=== PATIENT | female | born 1935 | race Hispanic/Latino ===

== ENCOUNTER 2018-11-26 16:57 | Inpatient (IN) | payer MEDICARE ==
[~2018-11-26] VITALS: Ht 142.2 cm; Wt 49.5 kg
[~2018-11-26 16:57] MED LIST: AMLO5TAB9 PO; CARV12.511 PO; LISI40TA4 PO; MEMA10TA20 PO
[2018-11-26] MEDS ORDERED: SODIUM CHLORIDE 0.9% 1000ML 1,000 ML IV ONE (18:24)
[2018-11-26 18:30] LABS: BASOPHILS % (AUTO) 0.4 % (0.0-5.0); EOSINOPHILS % (AUTO) 0.9 % (0.0-8.0); HEMATOCRIT 36.4 % (36-48); LYMPHOCYTES % (AUTO) 4.6 % (21.0-51.0); MEAN CORPUSCULAR HEMOGLOBIN 30.5 pg (27.0-33.0); MEAN CORPUSCULAR HGB CONC 31.2 g/dL (32.0-36.0); MEAN CORPUSCULAR VOLUME 97.7 fL (79-99); MONOCYTES % (AUTO) 2.3 % (3.0-13.0); NEUTROPHILS % (AUTO) 91.8 % (40.0-77.0); PLATELET COUNT (AUTO) 207 K/uL (130-400); RED BLOOD CELL COUNT(AUTO) 3.73 MIL/uL (4.00-5.50); RED CELL DISTRIBUTION WIDTH 15.2 % (11.0-15.5); WHITE BLOOD COUNT (AUTO) 26.2 K/uL (4.8-10.8)
[2018-11-26 18:43] LABS: INR 1.02 (0.85-1.15); PARTIAL THROMBOPLASTIN TIME 19.9 SEC (26.3-35.5); PROTHROMBIN TIME 10.7 SEC (9.6-11.6)
[2018-11-26 18:49] LABS: ALBUMIN 2.6 g/dL (3.5-5.0); BILIRUBIN,TOTAL 0.2 mg/dL (0.2-1.0); CREATININE 3.4 mg/dL (0.5-1.5); POTASSIUM 4.8 mmol/L (3.5-5.1); TOTAL PROTEIN, SERUM 7.9 g/dL (6.0-8.3)
[2018-11-26] MEDS ORDERED: ZOSYN 3.375GM+NS 50ML 50 ML IV ONE (20:14)
[2018-11-26] MEDS ORDERED: VANCOMYCIN 1GM+NS 250ML 250 ML IV ONE ×2 (20:14→21:00)
[2018-11-26] MEDS ORDERED: ACETAMINOPHEN 650 MG SUPPOSITORY RC ONE (20:16)
[2018-11-26] MEDS ORDERED: SODIUM CHLORIDE 0.9% 1000ML 1,000 ML IV SCH (20:56)
[2018-11-26 20:57] LABS: APPEARANCE,URINE CLOUDY (CLEAR); BILIRUBIN,URINE NEGATIVE (NEGATIVE); COLOR,URINE YELLOW (YELLOW); GLUCOSE, URINE (UA) NEGATIVE (NEGATIVE); KETONES,URINE NEGATIVE (NEGATIVE); LEUKOCYTE ESTERASE ,URINE MODERATE (NEGATIVE); NITRATE,URINE NEGATIVE (NEGATIVE); OCCULT BLOOD,URINE NEGATIVE (NEGATIVE); PH,URINE 5.5 (5.0-8.0); PROTEIN,URINE 30 mg/dL (NEGATIVE); UROBILINOGEN,URINE 0.2 mg/dL (0.2-1.0)
[2018-11-26] MEDS ORDERED: ACETAMINOPHEN 325 MG TAB PO PRN ×2 (21:00)
[2018-11-26] MEDS: ENOXAPARIN SODIUM 30 MG/0.3 ML SQ SCH (21:00)
[2018-11-26] MEDS ORDERED: ONDANSETRON HCL 4 MG/2 ML VIAL IV PRN (21:00)
[2018-11-26 21:21] LABS: BACTERIA,URINE Few /HPF (None Seen); RBC,URINE 0-1 /HPF (0-1); SQUAMOUS EPITHELIAL CELL,UR Moderate /HPF (0-2)
[2018-11-26 21:22] LABS: AMORPHOUS SEDIMENT,UR Few /LPF (None Seen)
[2018-11-26] MEDS ORDERED: IPRATROPIUM/ALBUTEROL SULFATE 3 ML SOLUTION IH ONE (21:33)
[2018-11-26] MEDS ORDERED: VANCOMYCIN PROTOCOL PER PHARMACY IV SCH (21:45)
[2018-11-26] MEDS: ZOSYN 3.375GM+NS 50ML 50 ML IV SCH (22:00)
[2018-11-26] MEDS: IPRATROPIUM/ALBUTEROL SULFATE 3 ML SOLUTION IH SCH (23:23)
[2018-11-27] MEDS ORDERED: ZOSYN 3.375GM+NS 50ML 50 ML IV ONE (04:11)
[2018-11-27] MEDS ORDERED: SODIUM CHLORIDE 0.9% 1000ML 1,000 ML IV ONE (04:12)
[2018-11-27 05:20] VITALS: BP 118/51
--- NOTE | 2018-11-27 06:48 | NUR ---
ADM DX RLL PNEUMONIA, NPO DUE TO DYSPHAGIA Addendum: 11/27/18 at 0651 by CHANTEL VAUGHAN RN RN Amended: Links added.
[2018-11-27] MEDS: IPRATROPIUM/ALBUTEROL SULFATE 3 ML SOLUTION IH SCH ×4 (07:13→23:00)
[2018-11-27 07:21] LABS: BASOPHILS % (AUTO) 0.2 % (0.0-5.0); EOSINOPHILS % (AUTO) 0.9 % (0.0-8.0); HEMATOCRIT 32.7 % (36-48); LYMPHOCYTES % (AUTO) 9.7 % (21.0-51.0); MEAN CORPUSCULAR HEMOGLOBIN 30.9 pg (27.0-33.0); MEAN CORPUSCULAR HGB CONC 31.5 g/dL (32.0-36.0); MEAN CORPUSCULAR VOLUME 98.2 fL (79-99); MONOCYTES % (AUTO) 2.6 % (3.0-13.0); NEUTROPHILS % (AUTO) 86.6 % (40.0-77.0); PLATELET COUNT (AUTO) 173 K/uL (130-400); RED BLOOD CELL COUNT(AUTO) 3.33 MIL/uL (4.00-5.50); RED CELL DISTRIBUTION WIDTH 14.9 % (11.0-15.5); WHITE BLOOD COUNT (AUTO) 15.9 K/uL (4.8-10.8)
[2018-11-27 07:42] LABS: CREATININE 3.4 mg/dL (0.5-1.5); POTASSIUM 3.9 mmol/L (3.5-5.1)
[2018-11-27] MEDS: DEXTROSE 5%-WATER 1,000 ML IV SCH ×3 (07:46→23:15)
[2018-11-27] MEDS: METHYLPREDNISOLONE SOD SUCC 40MG/ML 1ML IVP SCH ×3 (07:46→21:58)
[2018-11-27 08:00] VITALS: BP 144/58
--- NOTE | 2018-11-27 09:00 | NUR ---
Notified Dr. Parnell of [facility] stated Dr. Geiger was recreational director today and that he would notify him.
--- NOTE | 2018-11-27 10:32 | NUR ---
DCP - [facility] with [facility] spoke with daughter Rosalina [phone]. 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 Plan is for pt to return at al. Discussed end of life issues, directives, MPOA, code status, hospice. Daughter reports pt has 10 children, but she was primary caregiver until pt was placed in [place]. daughter states children are in agreement not to place PEG related to pt's advanced Alzheimer disease. At this time, family is considering hospice and allowing pt to be comfortable and pass naturally. Daughter states family would be agreeable to hospice. Earl called Criss at [facility] who states contracts are with [facility], [facility] and [facility]. Per Criss pt can return at al with hospice. EARL spoke to and order recd for hospice. Earl spoke to daughter and informed of contracted agencies, chose [facility]. Earl spoke to [facility] and made referral. pt in faxed to [facility] waiting on acceptance Addendum: 11/27/18 at 1046 by RIC COSTA SS Amended: Links added.
--- NOTE | 2018-11-27 11:00 | NUR ---
DYSPHAGIA EVAL COMPLETED. +S/S OF ASPIRATION. RECOMMEND NPO, LONG-TERM ALTERNATE MEANS OF NUTRITION/HYDRATION. PATIENT INFORMATION: Pt IS AN 83 YEAR OLD FEMALE REFERRED FOR A BEDSIDE DYSPHAGIA EVAL SECONDARY TO ADMITTING DIAGNOSIS OF ASPIRATION PNEUMONIA. Pt DOES NOT RESPOND TO NAME AND HAS A PERMANENT OPEN MOUTH POSTURE. Pt CURRENTLY NOT MANAGING SECRETIONS. Pt CURRENTLY ADMITTED SECONDARY TO RIGHT LOWER LOBE PNEUMONIA, RENAL INSUFFICIENCY, AND DEHYDRATION. Pt HAS A PAST MEDICAL HISTORY SIGNIFICANT FOR HYPERTENSION, HYPOKALEMIA, MUSCLE WASTING ATROPHY, COGNITIVE COMMUNICATION DEFICIT, HYPOXEMIA, PRESSURE ULCERS, CONTRACTED. NO FAMILY PRESENT AT THE TIME OF THE EVALUATION. EVALUATION: Pt PRESENTS WITH PROFOUND OROPHARYNGEAL DYSPHAGIA CAUSED BY DECREASED ORAL MOTOR ROM, COORDINATION AND STRENGTH, DECREASED INTRA-ORAL SENSATION, DECREASED LARYNGEAL ELEVATION/EXCURSION, ABSENT PHARYNGEAL RESPONSE AND ABSENT TONGUE BASE RETRACTION, E/B ABSENT LABIAL SEAL, POOLING OF SECRETIONS IN THE BACK OF THE THROAT WITH MANUAL REMOVAL BY UNDERCOVER AGENT, ABSENT LINGUAL MOVEMENT (RETRACTION, LATERALIZATION, PROTRUSION), OPEN MOUTH POSTURE, POOLING OF ICE CHIP IN ORAL CAVITY, RESULTING IN +S/S OF ASPIRATION PRESENT WITH ICE CHIPS. Pt IS AT HIGH RISK FOR ASPIRATION WITH ALL TEXTURES AND PRESENTS WITH SEVERELY DECREASED ABILITY TO MANAGE SECRETIONS. RECOMMENDATIONS: 1. NPO, LONG-TERM ALTERNATE MEANS OF NUTRITION/HYDRATION. 2. IF REFUSED BY FAMILY AND Pt IS GOING HOSPICE RECOMMEND PUREED, THIN LIQUIDS WITH HIGH RISK FOR ASPIRATION. G-CODES SWALLOWING: [id number] Addendum: 11/27/18 at [address] Amended: Links added.
--- NOTE | 2018-11-27 11:13 | NUR ---
LA ADELA Hartley faxed referral and Pasrr to [facility]
[2018-11-27] MEDS: ZOSYN 3.375GM+NS 50ML 50 ML IV SCH ×2 (11:18→21:58)
[2018-11-27] MEDS: FAMOTIDINE/PF 20 MG/2 ML VIAL IV SCH (11:18)
[2018-11-27] MEDS: ENOXAPARIN SODIUM 30 MG/0.3 ML SQ SCH ×2 (11:19→21:59)
[2018-11-27 12:00] VITALS: BP 172/66
--- NOTE | 2018-11-27 14:32 | NUR ---
CM Note: EMS arranged and faxed for tomorrow, primary nurse to call [facility] once pt ready to DC. Primary nurse aware. CM to cont to follow up.
[2018-11-27 16:00] VITALS: BP 138/58
--- NOTE | 2018-11-27 16:10 | NUR ---
PATIENT ASSESSED ORDERED: PATIENT PRESENTS WITH STAGE II PRESSURE ULCER TO RIGHT BUTTOCKS; [facility] RECOMMENDATIONS SUBMITTED. Addendum: 11/27/18 at 1612 by JOLENE GAMBOA LVN LVN W Amended: Links added.
--- NOTE | 2018-11-27 16:28 | NUR ---
RD Notification Pt with high aspiration risk. Pt seen by [facility] REPAIR TECHNICIAN; Recs pending familial decision. Pt family with refusal to PEG feeding. RD to follow up for continued POC. Pt LBM 11/26/18. Pt monitored labs:Na 176, Cl 139, BUN 115, Cr 3.4, GFR 14, Gu 116, Alb 2.6. Please notify RD as additional nutrition concerns arise. Thank you. Addendum: 11/27/18 at [address] Amended: Links added.
[2018-11-27 20:00] VITALS: BP 109/36
--- NOTE | 2018-11-27 20:00 | NUR ---
cough WITH PHLEGM NOTED PATIENT IS NOT IN RESPIRATORY DISTRESS. VITAL SIGNS WITHIN NORMAL RANGE. HOWEVER PT HAS THICK PHLEGM YELLOW IN COLOR. PATIENT UNABLE TO EXPECTORATE, DID DEEP SUCTIONING. O2 SAT 91% WHILE DOING THE SUCTIONING. MAINTAINED PATIENT ON O2 via nc at 2 lpm. O2 SAT WENT UP TO 97%, NOTED PT WAS ABLE TO RELAX AFTER SUCTIONING, NO DISCOMFORT NOTED. MONITORED ACCORDINGLY
[2018-11-27] MEDS ORDERED: HONEY 1 APPL/ML TUBE TP PRN (20:45)
[2018-11-27] MEDS ORDERED: SODIUM CHLORIDE 0.9% 250 ML IV ONE (21:50)
[2018-11-28] VITALS: BP 118/48
[2018-11-28 04:00] VITALS: BP 135/65
[2018-11-28 04:47] LABS: HEMATOCRIT 32.4 % (36-48); LYMPHOCYTES % (AUTO) 4.4 % (21.0-51.0); MEAN CORPUSCULAR HEMOGLOBIN 30.6 pg (27.0-33.0); MEAN CORPUSCULAR HGB CONC 31.5 g/dL (32.0-36.0); MEAN CORPUSCULAR VOLUME 97.2 fL (79-99); MONOCYTES % (AUTO) 0.6 % (3.0-13.0); PLATELET COUNT (AUTO) 167 K/uL (130-400); RED BLOOD CELL COUNT(AUTO) 3.34 MIL/uL (4.00-5.50); RED CELL DISTRIBUTION WIDTH 14.6 % (11.0-15.5); WHITE BLOOD COUNT (AUTO) 9.9 K/uL (4.8-10.8)
[2018-11-28 04:52] LABS: CREATININE 3.1 mg/dL (0.5-1.5); POTASSIUM 3.8 mmol/L (3.5-5.1)
[2018-11-28] MEDS: IPRATROPIUM/ALBUTEROL SULFATE 3 ML SOLUTION IH SCH ×4 (06:13→23:30)
[2018-11-28] MEDS: METHYLPREDNISOLONE SOD SUCC 40MG/ML 1ML IVP SCH ×3 (06:26→23:18)
[2018-11-28 08:00] VITALS: BP 128/56
[2018-11-28] MEDS: FAMOTIDINE/PF 20 MG/2 ML VIAL IV SCH (09:56)
[2018-11-28] MEDS: ZOSYN 3.375GM+NS 50ML 50 ML IV SCH ×2 (09:57→23:18)
[2018-11-28] MEDS: ENOXAPARIN SODIUM 30 MG/0.3 ML SQ SCH ×2 (09:58→23:19)
[2018-11-28 12:00] VITALS: BP 177/86
[2018-11-28] MEDS: DEXTROSE 5%-WATER 1,000 ML IV SCH (12:39)
--- NOTE | 2018-11-28 13:02 | NUR ---
Dr. Geiger in to see pt., recommends DNR status, family member in room states he doesn't make the decisions, his older sister does. To call nurse when she's here.
[2018-11-28 16:00] VITALS: BP 136/57
[2018-11-28] MEDS ORDERED: VANCOMYCIN 500MG+NS 100ML 100 ML IV SCH (18:00)
[2018-11-28 20:03] VITALS: BP 121/50
--- NOTE | 2018-11-28 20:29 | NUR ---
DNR When making rounds, spoke to the daughter Rosalina is she has considered making patient DNR. Daughter has agreed and would like for patient to be DNR. Informed her that she will need to fill a form of consent for DNR and asked not to leave before signing. Daughter is not present in room; phoned her over the phone if she has left hospital and daughter states yes but will come by in am to sign. Patient is stable and has plans to be discharge back to [place] with hospice. Will continue to monitor patient.
[2018-11-29 00:02] VITALS: BP 129/51
[2018-11-29] MEDS: DEXTROSE 5%-WATER 1,000 ML IV SCH (01:20)
[2018-11-29 04:00] VITALS: BP 150/68
[2018-11-29] MEDS: IPRATROPIUM/ALBUTEROL SULFATE 3 ML SOLUTION IH SCH ×2 (06:12→10:55)
[2018-11-29] MEDS: METHYLPREDNISOLONE SOD SUCC 40MG/ML 1ML IVP SCH (06:45)
[2018-11-29 07:54] LABS: BASOPHILS % (AUTO) 0.1 % (0.0-5.0); HEMATOCRIT 30.2 % (36-48); LYMPHOCYTES % (AUTO) 5.7 % (21.0-51.0); MEAN CORPUSCULAR HGB CONC 32.3 g/dL (32.0-36.0); MEAN CORPUSCULAR VOLUME 95.8 fL (79-99); MONOCYTES % (AUTO) 1.4 % (3.0-13.0); NEUTROPHILS % (AUTO) 92.8 % (40.0-77.0); PLATELET COUNT (AUTO) 135 K/uL (130-400); RED BLOOD CELL COUNT(AUTO) 3.15 MIL/uL (4.00-5.50); RED CELL DISTRIBUTION WIDTH 14.3 % (11.0-15.5); WHITE BLOOD COUNT (AUTO) 13.5 K/uL (4.8-10.8)
[2018-11-29 08:13] LABS: CREATININE 2.9 mg/dL (0.5-1.5)
[2018-11-29 08:28] VITALS: BP 175/74
[2018-11-29] MEDS: FAMOTIDINE/PF 20 MG/2 ML VIAL IV SCH (09:41)
[2018-11-29] MEDS: ZOSYN 3.375GM+NS 50ML 50 ML IV SCH (09:42)
[2018-11-29] MEDS: ENOXAPARIN SODIUM 30 MG/0.3 ML SQ SCH (09:42)
--- NOTE | 2018-11-29 11:00 | NUR ---
PER FAMILY MEMBER REGINA SCHMITZ SIGNED DNR, NO MORE MEDS ONLY COMFORT MEASURES, JESICAK ARTIST [employer] AWARE. OKAY TO STOP ALL MEDS.
[2018-11-29 12:17] VITALS: BP 172/69
--- NOTE | 2018-11-29 14:30 | NUR ---
REPORT GIVEN TO; JESS FROM [facility] AND AND FABRICIO FROM [facility] PENDING EMS. FAMILY AWARE ABOUT TRANSFER THEY WERE AT BEDSIDE.
--- NOTE | 2018-11-29 15:00 | NUR ---
[facility], AWARE OF TRANSFER TO [facility].
--- NOTE | 2018-11-29 15:34 | NUR ---
FAMILY AWARE OF TRANSFER TO HOSPICE THEY ARE AT BEDSIDE. REGINA SCHMITZ.
--- NOTE | 2018-11-29 16:53 | NUR ---
EMS HERE TO TRANSFER PATIENT, PATIENT IN NO DISTRESS. DAUGHTER AT BEDSIDE.
== END 2018-11-29 16:47 | disposition hospice, inpatient (51) | DRG 178 ==
LOC: EDH 16:57 → EDHIP 20:35 → 3AH 11-27 04:48
PROVIDERS: ADMIT Internal Medicine; ATTEND Internal Medicine
DX: J69.0 Pneumonitis due to inhalation of food and vomit (principal); N17.9 Acute kidney failure, unspecified; E44.0 Moderate protein-calorie malnutrition; N39.0 Urinary tract infection, site not specified; E87.0 Hyperosmolality and hypernatremia; R47.01 Aphasia; J98.11 Atelectasis; E86.0 Dehydration; I10 Essential (primary) hypertension; F03.90 Unspecified dementia, unspecified severity, without behavioral disturbance, psychotic disturbance, mood disturbance, and anxiety; L89.90 Pressure ulcer of unspecified site, unspecified stage; R13.10 Dysphagia, unspecified; Z51.5 Encounter for palliative care; Z66 Do not resuscitate; Z91.14 Patient's other noncompliance with medication regimen; Z68.24 Body mass index [BMI] 24.0-24.9, adult; Z82.3 Family history of stroke; Z82.49 Family history of ischemic heart disease and other diseases of the circulatory system
CPT/HCPCS: 36415; 71045; 80048; 80053; 81001; 83605; 83935; 84300; 84484; 85025; 85610; 85730; 87040; 87088; 87804; 92610; 93005; 94640; 94664; 99291; G0378; J1650; J2543; J2920; J3370; J3490; J7030; J7070